=== PATIENT | female | born 1970 | race African-American/Black ===

== ENCOUNTER 2016-08-18 02:41 | Emergency (ER) | payer SELFPAY ==
[~2016-08-18] VITALS: Ht 175.3 cm; Wt 78.9 kg
[2016-08-18 03:07] VITALS: BP 101/66
[2016-08-18] MEDS ORDERED: Lidocaine 2% 20mg/ml/Epi 0.005mg/ml 20ml vial ONE (03:35)
[2016-08-18] MEDS ORDERED: Oxycodone/Acetaminophen 5-325 ORAL ONE (03:45)
[2016-08-18] MEDS ORDERED: Lidocaine 1% 10mg/ml/EPI 0.01mg/ml 50ml INJ ONE (03:45)
--- NOTE | 2016-08-18 04:02 | Emergency Room Report ---
History of Present Illness General Chief Complaint: Skin Rash/Abscess Source: Patient Present Illness HPI 45YO F with history of recurrent abscesses and known DM - noncompliant with metformin for months - presents with 2 abscesses, worsened over last few days. Associated with chills. Denies fever. Some pus broken thru lower right back abscess. Allergies: Coded Allergies: No Known Allergies (Unverified , 08/18/16) Patient History Past Medical History: DM Past Surgical History: none Pertinent Family History: none Social History: Denies: alcohol use, drug use, smoking Last Menstrual Period: 08/02/16 Now: No Immunizations: UTD Reviewed Nursing Documentation: PMH: Agreed, PSxH: Agreed Nursing Documentation-PMH Past Medical History: No History, Except For Hx Diabetes: Yes - Type 2 Review of Systems All Other Systems: negative except mentioned in HPI Physical Exam Vital Signs Date Time Temp Pulse Resp B/P Pulse Ox O2 Delivery O2 Flow Rate FiO2 08/18/16 02:57 99.0 109 19 101/66 100 Room Air Sp02 EP Interpretation: reviewed, normal General Appearance: normal inspection, well appearing, no apparent distress, alert, GCS 15, non-toxic Head: normocephalic, atraumatic Eyes: bilateral eye EOMI, bilateral eye PERRL ENT: normal ENT inspection, hearing grossly normal, normal voice Neck: normal inspection, full range of motion, supple, no bony tend Respiratory: normal inspection, lungs clear, normal breath sounds, no respiratory distress, no retraction, no wheezing Cardiovascular #1: regular rate, rhythm, no edema Gastrointestinal: normal inspection, normal bowel sounds, non tender, soft, no guarding, no hernia Genitourinary: no CVA tenderness Musculoskeletal: normal inspection, back normal, normal range of motion, Raymond' s Sign negative Neurologic: normal inspection, alert, oriented x3, responsive, 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, motor strength/tone normal, speech normal Psychiatric: normal inspection, judgement/insight normal, mood/affect normal Skin: other - 2 large abscesses: midline thorax of back and right lower back Procedures Incision and Drainage Incision and Drainage : Consent: Verbal Blade Size: 11 I & D Procedure: betadine prep, sterile drapes applied, sterile dressing applied, gauze wick placed Wound Location: back Wound's Depth, Shape: superficial Wound Explored: clean Anesthesia: Lidocaine w/ Epi Splint Applied?: No Sling Applied?: No Patient Tolerated: Well Complications: None Progress 2 large abscess I&D Patient lying prone Area cleaned with betadine prep Lidocaine with epi injected into abscess Lower right back: 8cm oval shaped abscess with associated erythema and fluctuance: 4cm horizontal incision made in line with skin folds; copious 30- 40cc purulent material expressed. Additional pockets broke up with carly clamp. Area covered with gauze and tape Mid thoracic back: 10cm oval shaped abscess with associated erythema and fluctuance: 5cm horizontal incision made in line with skin folds; copious 35cc purulent material expressed. Additional pockets broke up with carly clamp. Area covered with gauze and tape Medical Decision Making Diagnostic Impression: Primary Impression: Thoracic abscess Additional Impression: Abscess of lower back ER Course S/p I&D of 2 large abscess of back Will Rx keflex/bactrim given history of DM Will Refill Metformin Advised return for wound check in 3 days, Tuesday DC home Last Vital Signs Date Time Temp Pulse Resp B/P Pulse Ox O2 Delivery O2 Flow Rate FiO2 08/18/16 03:07 99.0 109 19 101/66 100 Room Air Status: improved Disposition: HOME, SELF-CARE Referrals: NOT CHOSEN IPA/,REFERRING (PCP) ABELINO CHUA M.D. Aug 18, 2016 04:02
[2016-08-18] MEDS ORDERED: BACTRIM DS TAB1 EAC1 ORAL (04:04)
[2016-08-18] MEDS ORDERED: KEFLEX500 MG ORAL (04:04)
[2016-08-18] MEDS ORDERED: METFORMIN HCL500 M1 ORAL (04:04)
[2016-08-18 04:19] VITALS: BP 109/68
== END 2016-08-18 04:20 | disposition home or self-care (01) ==
LOC: EMR 03:30
DX: L02.212 Cutaneous abscess of back [any part, except buttock and flank] (principal); E11.9 Type 2 diabetes mellitus without complications
CPT/HCPCS: 10060